=== PATIENT | male | born 1995 | race Hispanic/Latino ===

== ENCOUNTER 2019-05-14 13:09 | Emergency (ER) | payer OTHER ==
--- NOTE | 2019-05-14 14:13 | REP ---
Left knee series: Five views. History: Kicked by a cow. Findings: Five views of the left knee demonstrate normal bones, joints, and soft tissues. No fracture, subluxation or joint effusion is seen. Impression: Negative radiographs of the left knee. Electronically Signed by Neno Casanova MD 05/14/2019 08:05 P
[2019-05-14] MEDS ORDERED: IBUPROFEN 600 MG TAB PO ONE (15:00)
[2019-05-14] MEDS ORDERED: IBUP-1022 PO (15:12)
[2019-05-14 15:16] VITALS: BP 131/69
== END 2019-05-14 15:18 | disposition home or self-care (01) ==
LOC: M ED 13:09
DX: S83.412A Sprain of medial collateral ligament of left knee, initial encounter (principal); W55.22XA Struck by cow, initial encounter; Y92.89 Other specified places as the place of occurrence of the external cause; Y99.0 Civilian activity done for income or pay